=== PATIENT | female | born 1980 | race Caucasian/White ===

== ENCOUNTER 2016-09-10 13:49 | Inpatient (IN) | payer SELFPAY ==
[2016-09-10] MEDS ORDERED: ADENOCARD INJ 6 MG IVP ONE ×3 (13:55→14:12)
[2016-09-10] MEDS ORDERED: CARDIZEM INJ 50 MG VIAL ONE (14:18)
[2016-09-10] MEDS ORDERED: ZOFRAN INJ 4 MG VIAL ONE (14:18)
[2016-09-10] MEDS ORDERED: ZOFRAN INJ 4 MG VIAL IVP ONE (14:20)
[2016-09-10] MEDS ORDERED: CARDIZEM INJ 50 MG VIAL IVP ONE ×2 (14:23→18:11)
--- NOTE | 2016-09-10 14:30 | DR.GENAD ---
HPI - PCP Primary Care Physician: LUIS ENRIQUE - Complaint/Symptoms Chief Complaint Doctors Comments: Patient presents with rapid heart rated. She admits to SVT since undergoing a "sleve" procedure s/p complication has had SVT. She is usually controlled n digoxin but since surgery complication has had problems with SVT. Chief Complaint:: HIGH HEART RATE, PATIENT DENIES PAIN EXCEPT FEELS PRESSURE WITH DISCOMFORT WHEN AMBULATING. Self Treatment fo Chief Complaint: BED REST - Source History Provided: Patient - Mode of Arrival Mode of Arrival: Ambulatory - Timing Onset of Chief Complaint: 09/05/16 PMH - PMH Past Medical History: Yes Past Medical History: Hypertension, Ventricular Tachycardia Past Medical History Comment: STOMACH REMOVED 2015 Past Surgical History: Yes Surgical History: Cholecystectomy, Weight Loss Surgery - Family History History of Family Medical Conditions: Yes Family Medical History: Coronary Artery Disease, Hypertension - Social History Type of Tobacco Use: Cigarettes Does any household member use tobacco: Yes Alcohol Use: None Do you use any recreational Drugs:: Yes (MARIJUNIA) Lives With: Alone Lives Where: Home - infectious screening In the last 2 months have you had wt loss of >10#?: NO Have you had fever, night sweats or hemotysis?: No Have you traveled outside the country in the last 6 months?: No Isolation: Standard ROS - Review of Systems Eyes: No Symptoms Reported ENTM: No Symptoms Reported Respiratoy: No Symptoms Reported Cardiovascular: Other (tachycardia) Gastrointestinal/Abdominal: No Symptoms Reported Genitourinary: No Symptoms Reported Neurological: No Symptoms Reported Musculoskeletal: No Symptoms Reported Integumentary: No Symptoms Reported Hematologic/Lymphatic: No Symptoms Reported Endocrine: No Symptoms Reported Psychiatric: No Symptoms Reported All Other Systems: Reviewed and Negative PE - Vital Signs Vitals: Temperature 98.1 F Pulse Rate [Right Brachial] 77 Pulse Rate 167 Respiratory Rate 16 Blood Pressure [Right Arm] 123/71 Blood Pressure 143/86 O2 Sat by Pulse Oximetry 100 - General Limitations: No Limitations General Appearance: Alert, In No Apparent Distress - Head Head Exam: Normal Inspection, Atraumatic - Eyes Eye exam: Normal Appearance, PERRL, EOMI - ENT ENT Exam: Normal Exam External Ear Exam: Normal External Inspection TM/Canal Exam: Bilateral Normal Nose Exam: Normal Nose Exam, Sinus Tenderness Mouth Exam: Normal Inspection Throat Exam: Normal Inspection - Neck Neck Exam: Normal Inspection, Full ROM - Chest Chest Inspection: Normal Inspection, Symmetric Chest Wall Rise - Respiratory Respiratory Exam: Normal Lung Sounds Bilat Respiratory Exam: Bilateral Clear to Auscultation - Cardiovascular Cardiovascular Exam: Regular Rate, Normal Rhythm - Abdominal Exam Abdominal Exam: Normal Inspection Abdominal Tenderness: Other (Non tender with drainage tubing attached.) - Back Back Exam: Normal Inspection, Full ROM - Neurologic Neurological Exam: Alert, Oriented X3, CN II-XII Intact - Psychiatric Psychiatric Exam: Normal Affect, Normal Mood, Depressed - Skin Skin Exam: Warm, Dry, Intact Course - Treatment Treatment: Adenosin,diltiazem,digoxin,potassium, diltiazem drip, cipro - Reevaluation 1st: Improved - Consultation Called: 06:00 (He agreed to admit for further evaluation and treatment) ROR - Labs Reviewed Laboratory Results Reviewed?: Yes (low potassium) Result Diagrams: 09/10/16 14:00 09/10/16 14:00 Laboratory: WBC 11.4 X10^3/uL (3.6-10.0) H 09/10/16 14:00 RBC 4.85 X10^6/uL (3.5-5.4) 09/10/16 14:00 Hgb 17.0 g/dL (12.0-16.0) H 09/10/16 14:00 Hct 50.8 % (36.0-47.0) H 09/10/16 14:00 MCV 104.7 fL (80.0-100.0) H 09/10/16 14:00 MCH 35.1 pg (27.0-34.0) H 09/10/16 14:00 MCHC 33.5 g/dL (33.0-35.0) 09/10/16 14:00 RDW 17.5 % (11.6-16.5) H 09/10/16 14:00 Plt Count 346 X10^3/uL (150.0-450.0) 09/10/16 14:00 MPV 8.5 fL (7.4-11.0) 09/10/16 14:00 Neut % 61.3 % (42.0-75.0) 09/10/16 14:00 Lymph % 29.9 % (21.0-51.0) 09/10/16 14:00 [place] % 4.0 % (0.0-13.0) 09/10/16 14:00 Eos % 4.3 % (0.9-2.9) H 09/10/16 14:00 Baso % 0.5 % (0.2-1.0) 09/10/16 14:00 Neut # 7.0 x10^3/uL (2.2-4.8) H 09/10/16 14:00 Lymph # 3.4 X10^3/uL (1.3-2.9) H 09/10/16 14:00 [place] # 0.5 x10^3/uL (0.3-0.8) 09/10/16 14:00 Eos # 0.5 x10^3/uL (0.0-0.2) H 09/10/16 14:00 Baso # 0.1 X10^3/uL (0.0-0.1) 09/10/16 14:00 Absolute Nucleated RBC 0.2 /100WBC 09/10/16 14:00 Sodium 142 mmol/L (136-145) 09/10/16 14:00 Corrected Sodium 142 mmol/L (136-145) 09/10/16 14:00 Potassium 3.2 mmol/L (3.5-5.1) L 09/10/16 14:00 Chloride 105 mmol/L (98-107) 09/10/16 14:00 Carbon Dioxide 27.5 mmol/L (21-32) 09/10/16 14:00 BUN 8 mg/dL (7-18) 09/10/16 14:00 Creatinine 0.82 mg/dL (0.55-1.02) 09/10/16 14:00 Est GFR (MDRD) Af Amer > 60 (>60) 09/10/16 14:00 Est GFR (MDRD) Non-Af > 60 (>60) 09/10/16 14:00 Glucose 112 mg/dL (65-99) H 09/10/16 14:00 Calcium 8.3 mg/dL (8.5-10.1) L 09/10/16 14:00 Corrected Calcium 9.4 mg/dL (8.5-10.1) 09/10/16 14:00 Phosphorus 3.7 mg/dL (2.6-4.7) 09/10/16 14:00 Magnesium 1.6 mg/dL (1.7-2.9) L 09/10/16 14:00 Total Bilirubin 0.50 mg/dL (0.2-1.0) 09/10/16 14:00 AST 59 Units/L (15-37) H 09/10/16 14:00 ALT 33 Units/L (12-78) 09/10/16 14:00 Alkaline Phosphatase 159 Units/L (46-116) H 09/10/16 14:00 Creatine Kinase 27 Units/L (26-192) 09/10/16 14:00 CK-MB (CK-2) 1.3 ng/mL (0-4.0) 09/10/16 14:00 CK/CKMB % Calc 4.8 % (<4) 09/10/16 14:00 Troponin I < 0.02 ng/mL (0-1.5) 09/10/16 14:00 Total Protein 7.0 g/dL (6.4-8.2) 09/10/16 14:00 Albumin 2.6 g/dL (3.4-5.0) L 09/10/16 14:00 Globulin 4.4 g/dL (2.5-4.5) 09/10/16 14:00 Albumin/Globulin Ratio 0.6 Ratio (1.1-2.1) L 09/10/16 14:00 HCG, Qual Negative <10 mIU/mL 09/10/16 14:00 Specimen Type Clean catch urine 09/10/16 16:29 Urine Color [place] (YELLOW) 09/10/16 16:29 Urine Appearance Cloudy (CLEAR) 09/10/16 16:29 Urine pH 6.0 (5.0 - 8.0) 09/10/16 16:29 Ur Specific [place] 1.020 (1.000-1.030) 09/10/16 16:29 Urine Protein 3+ (NEGATIVE) 09/10/16 16:29 Urine Glucose (UA) Negative (NEGATIVE) 09/10/16 16:29 Urine Ketones 2+ (NEGATIVE) 09/10/16 16:29 Urine Occult Blood 2+ (NEGATIVE) 09/10/16 16:29 Urine Nitrite Positive (NEGATIVE) 09/10/16 16:29 Urine Bilirubin 2+ (NEGATIVE) 09/10/16 16:29 Urine Urobilinogen 3+ (NORMAL) 09/10/16 16:29 Ur Leukocyte Esterase 3+ (NEGATIVE) 09/10/16 16:29 Urine RBC 10-15 /HPF (NEGATIVE) 09/10/16 16:29 Urine WBC Tntc /HPF (NEGATIVE) 09/10/16 16:29 Ur Squamous Epith Cells Moderate /HPF (NEGATIVE) 09/10/16 16:29 Calcium Oxalate Crystal Few /HPF (NEGATIVE) 09/10/16 16:29 Urine Bacteria 3+ /HPF (NEGATIVE) 09/10/16 16:29 Hyaline Casts Many /LPF (NEGATIVE) 09/10/16 16:29 Urine Mucus Moderate /HPF (NEGATIVE) 09/10/16 16:29 Ur Culture Indicated? Yes/culture set up 09/10/16 16:29 Digoxin 0.70 ng/mL (0.9-2) L 09/10/16 14:00 - Diagnosis Discharge Problem: SVT (supraventricular tachycardia), Hypokalemia UTI (urinary tract infection) Qualifiers: Urinary tract infection type: acute cystitis Hematuria presence: with hematuria Qualified Code(s): N30.01 - Acute cystitis with hematuria - Discharge Plan Condition: Stable - Follow ups/Referrals Follow ups/Referrals: ISHAN CANTU [Primary Care Provider] - 3 days - Instructions
[2016-09-10 14:57] LABS: BASOPHILS # (AUTO) 0.1 X10^3/uL (0.0-0.1); BASOPHILS % (AUTO) 0.5 % (0.2-1.0); EOSINOPHILS # (AUTO) 0.5 x10^3/uL (0.0-0.2); EOSINOPHILS % (AUTO) 4.3 % (0.9-2.9); HEMATOCRIT 50.8 % (36.0-47.0); LYMPHOCYTES # (AUTO) 3.4 X10^3/uL (1.3-2.9); LYMPHOCYTES % (AUTO) 29.9 % (21.0-51.0); MEAN CORPUSCULAR HEMOGLOBIN 35.1 pg (27.0-34.0); MEAN CORPUSCULAR HGB CONC 33.5 g/dL (33.0-35.0); MEAN CORPUSCULAR VOLUME 104.7 fL (80.0-100.0); MEAN PLATELET VOLUME 8.5 fL (7.4-11.0); MONOCYTES # (AUTO) 0.5 x10^3/uL (0.3-0.8); NEUTROPHILS % (AUTO) 61.3 % (42.0-75.0); PLATELET COUNT 346 X10^3/uL (150.0-450.0); RED BLOOD COUNT 4.85 X10^6/uL (3.5-5.4); RED CELL DISTRIBUTION WIDTH 17.5 % (11.6-16.5); WHITE BLOOD COUNT 11.4 X10^3/uL (3.6-10.0)
[2016-09-10] MEDS ORDERED: CARDIZEM INJ 125 MG VIAL 125 MG in NS 100 ML IV 100 ML IV PRN ×2 (15:06→18:11)
[2016-09-10 15:11] LABS: BLOOD UREA NITROGEN 8 mg/dL (7-18); CALCIUM 8.3 mg/dL (8.5-10.1); CARBON DIOXIDE 27.5 mmol/L (21-32); CHLORIDE 105 mmol/L (98-107); COR NA(FOR HYPERGLY) 142 mmol/L (136-145); CREATININE 0.82 mg/dL (0.55-1.02); GLUCOSE 112 mg/dL (65-99); SODIUM 142 mmol/L (136-145); TROPONIN I < 0.02 ng/mL (0-1.5); eGFR BLACK RACES > 60 (>60); eGFR NON BLACK RACES > 60 (>60)
[2016-09-10 15:15] LABS: ALANINE AMINOTRANSFERASE 33 Units/L (12-78); ALBUMIN 2.6 g/dL (3.4-5.0); ALKALINE PHOSPHATASE 159 Units/L (46-116); ASPARTATE AMINO TRANSFERASE 59 Units/L (15-37); CKMB % 4.8 % (<4); COR CA(FOR HYPOALB) 9.4 mg/dL (8.5-10.1); CREATINE KINASE 27 Units/L (26-192); CREATINE KINASE MB 1.3 ng/mL (0-4.0); MAGNESIUM 1.6 mg/dL (1.7-2.9); PHOSPHORUS 3.7 mg/dL (2.6-4.7)
[2016-09-10 15:22] LABS: SERUM PREGNANCY TEST, QUAL NEGATIVE <10 mIU/mL
[2016-09-10] MEDS ORDERED: LANOXIN INJ ONE ×2 (15:29→15:48)
--- NOTE | 2016-09-10 15:39 | RAD ---
HISTORY: Supraventricular tachycardia, chest pressure Study: Single view of the chest Comparison: None Findings: The trachea is midline. The cardiac silhouette is unremarkable. The lungs are clear without focal infiltrate or effusion. Elevation of the right hemidiaphragm is noted. IMPRESSION: 1. No acute cardiopulmonary disease. Reported By:
[2016-09-10] MEDS ORDERED: LANOXIN INJ IVP STA (15:48)
[2016-09-10] MEDS ORDERED: LANOXIN INJ IVP SCH (16:00)
[2016-09-10] MEDS ORDERED: K-LYTE EFFERVESCENT PO STA (16:10)
[2016-09-10] MEDS ORDERED: K-LYTE EFFERVESCENT ONE (16:15)
[2016-09-10 16:58] LABS: BILIRUBIN,URINE 2+ (NEGATIVE); BLOOD/HEMOGLOBIN,URINE 2+ (NEGATIVE); GLUCOSE, URINE NEGATIVE (NEGATIVE); KETONES,URINE 2+ (NEGATIVE); LEUKOCYTE ESTERASE ,URINE 3+ (NEGATIVE); NITRITES,URINE POSITIVE (NEGATIVE); PROTEIN,URINE 3+ (NEGATIVE); UROBILINOGEN,URINE 3+ (NORMAL)
[2016-09-10 17:27] LABS: APPEARANCE,URINE CLOUDY (CLEAR); BACTERIA,URINE 3+ /HPF (NEGATIVE); COLOR,URINE AMBER (YELLOW); SQUAMOUS EPITHELIAL CELL,UR MODERATE /HPF (NEGATIVE)
[2016-09-10 17:28] LABS: CALCIUM OXALATE CRYSTALS,UR FEW /HPF (NEGATIVE); HYALINE CASTS, URINE MANY /LPF (NEGATIVE); MUCUS,URINE MODERATE /HPF (NEGATIVE)
[2016-09-10] MEDS ORDERED: LEVAQUIN PREMIX IV 500 MG 500 MG/100 ML BAG IV ONE (17:40)
[2016-09-10] MEDS ORDERED: ZOFRAN INJ 4 MG VIAL IVP PRN (18:19)
[2016-09-10] MEDS ORDERED: CARDIZEM INJ 125 MG VIAL ONE (18:24)
[2016-09-10] MEDS ORDERED: NS 100 ML IV 100 ML IV ONE (18:24)
[2016-09-10] MEDS ORDERED: NS 1000 ML 1,000 ML ONE (19:40)
[2016-09-10] MEDS: NS 1000 ML 1,000 ML IV SCH (19:57)
[2016-09-10] MEDS: CIPRO IV 400 MG PREMIX* 400 MG/200 ML IV.SOLN. IV SCH (21:45)
[2016-09-11 00:09] VITALS: BMI 23.8
[2016-09-11 06:20] LABS: BASOPHILS % (AUTO) 0.6 % (0.2-1.0); EOSINOPHILS # (AUTO) 0.3 x10^3/uL (0.0-0.2); HEMATOCRIT 34.7 % (36.0-47.0); LYMPHOCYTES # (AUTO) 1.8 X10^3/uL (1.3-2.9); LYMPHOCYTES % (AUTO) 36.3 % (21.0-51.0); MEAN CORPUSCULAR HEMOGLOBIN 36.1 pg (27.0-34.0); MEAN CORPUSCULAR HGB CONC 34.5 g/dL (33.0-35.0); MEAN CORPUSCULAR VOLUME 104.8 fL (80.0-100.0); MEAN PLATELET VOLUME 8.2 fL (7.4-11.0); MONOCYTES # (AUTO) 0.3 x10^3/uL (0.3-0.8); MONOCYTES % (AUTO) 5.4 % (0.0-13.0); NEUTROPHILS # (AUTO) 2.7 x10^3/uL (2.2-4.8); NEUTROPHILS % (AUTO) 52.7 % (42.0-75.0); PLATELET COUNT 152 X10^3/uL (150.0-450.0); RED BLOOD COUNT 3.31 X10^6/uL (3.5-5.4); RED CELL DISTRIBUTION WIDTH 17.4 % (11.6-16.5)
[2016-09-11 06:47] LABS: ALANINE AMINOTRANSFERASE 20 Units/L (12-78); ALBUMIN 1.6 g/dL (3.4-5.0); ALKALINE PHOSPHATASE 98 Units/L (46-116); ASPARTATE AMINO TRANSFERASE 40 Units/L (15-37); BLOOD UREA NITROGEN 6 mg/dL (7-18); CALCIUM 7.4 mg/dL (8.5-10.1); CARBON DIOXIDE 26.6 mmol/L (21-32); CHLORIDE 110 mmol/L (98-107); COR CA(FOR HYPOALB) 9.3 mg/dL (8.5-10.1); CREATININE 0.51 mg/dL (0.55-1.02); GLUCOSE 66 mg/dL (65-99); SODIUM 144 mmol/L (136-145); TOTAL PROTEIN 4.5 g/dL (6.4-8.2); eGFR BLACK RACES > 60 (>60); eGFR NON BLACK RACES > 60 (>60)
[2016-09-11 06:51] LABS: DIGOXIN 2.67 ng/mL (0.9-2)
[2016-09-11] MEDS: CIPRO IV 400 MG PREMIX* 400 MG/200 ML IV.SOLN. IV SCH ×2 (08:53→21:25)
[2016-09-11] MEDS: NS 1000 ML 1,000 ML IV SCH (08:53)
[2016-09-11] MEDS: MAGNESIUM SULFATE 1 GM/100 mL PREMIX 1 GM/100 ML BAG IV SCH ×2 (10:16→11:25)
[2016-09-11] MEDS ORDERED: LOPRESSOR INJ 5 MG AMP IVP ONE (15:19)
[2016-09-11] MEDS: LOPRESSOR TAB 25 MG PO SCH (19:34)
[2016-09-12] MEDS: NS 1000 ML 1,000 ML IV SCH (00:36)
[2016-09-12] MEDS: LOPRESSOR TAB 25 MG PO SCH ×3 (00:37→18:29)
[2016-09-12] MEDS: CIPRO IV 400 MG PREMIX* 400 MG/200 ML IV.SOLN. IV SCH (08:46)
[2016-09-12 09:44] LABS: BASOPHILS % (AUTO) 0.9 % (0.2-1.0); EOSINOPHILS # (AUTO) 0.2 x10^3/uL (0.0-0.2); EOSINOPHILS % (AUTO) 5.1 % (0.9-2.9); HEMATOCRIT 38.5 % (36.0-47.0); HEMOGLOBIN 13.1 g/dL (12.0-16.0); LYMPHOCYTES # (AUTO) 1.3 X10^3/uL (1.3-2.9); LYMPHOCYTES % (AUTO) 27.2 % (21.0-51.0); MEAN CORPUSCULAR HEMOGLOBIN 35.5 pg (27.0-34.0); MEAN CORPUSCULAR HGB CONC 33.9 g/dL (33.0-35.0); MEAN CORPUSCULAR VOLUME 104.6 fL (80.0-100.0); MEAN PLATELET VOLUME 8.1 fL (7.4-11.0); MONOCYTES # (AUTO) 0.2 x10^3/uL (0.3-0.8); MONOCYTES % (AUTO) 4.4 % (0.0-13.0); NEUTROPHILS % (AUTO) 62.4 % (42.0-75.0); PLATELET COUNT 157 X10^3/uL (150.0-450.0); RED BLOOD COUNT 3.68 X10^6/uL (3.5-5.4); RED CELL DISTRIBUTION WIDTH 17.1 % (11.6-16.5); WHITE BLOOD COUNT 4.7 X10^3/uL (3.6-10.0)
[2016-09-12 09:58] LABS: ALANINE AMINOTRANSFERASE 30 Units/L (12-78); ALKALINE PHOSPHATASE 120 Units/L (46-116); ASPARTATE AMINO TRANSFERASE 63 Units/L (15-37); BLOOD UREA NITROGEN 5 mg/dL (7-18); CALCIUM 7.8 mg/dL (8.5-10.1); CARBON DIOXIDE 29.6 mmol/L (21-32); CHLORIDE 107 mmol/L (98-107); COR CA(FOR HYPOALB) 9.4 mg/dL (8.5-10.1); CREATININE 0.55 mg/dL (0.55-1.02); DIGOXIN 1.51 ng/mL (0.9-2); GLUCOSE 92 mg/dL (65-99); SODIUM 140 mmol/L (136-145); TOTAL PROTEIN 5.4 g/dL (6.4-8.2); eGFR BLACK RACES > 60 (>60); eGFR NON BLACK RACES > 60 (>60)
[2016-09-12] MEDS ORDERED: DIFLUCAN PO ONE (17:28)
[2016-09-12] MEDS ORDERED: BACTRIM DS TAB PO ONE (18:21)
[2016-09-12 19:32] VITALS: BP 141/94
== END 2016-09-12 18:35 | disposition home or self-care (01) | DRG 309 ==
LOC: ER 14:12 → ICU 18:08
PROVIDERS: ADMIT Obstetrics & Gynecology Obstetrics; ATTEND Obstetrics & Gynecology Obstetrics
DX: I47.1 Supraventricular tachycardia (principal); N30.01 Acute cystitis with hematuria; I10 Essential (primary) hypertension; E87.6 Hypokalemia; R94.31 Abnormal electrocardiogram [ECG] [EKG]; E86.0 Dehydration; Z93.1 Gastrostomy status; B96.29 Other Escherichia coli [E. coli] as the cause of diseases classified elsewhere; D64.89 Other specified anemias; D72.828 Other elevated white blood cell count
CPT/HCPCS: 36415; 71010; 80053; 80162; 81001; 82550; 82553; 83735; 84100; 84484; 84703; 85025; 87086; 87088; 87186; 93005; 93010; 93041; 96365; 96367; 96374; 96375; 99284; 99285; A4222; J0150; J0744; J1160; J2405; J3490